=== PATIENT | male | born 1930 | race Caucasian/White ===

== ENCOUNTER 2019-02-07 18:38 | Observation (INO) ==
--- NOTE | 2019-02-07 19:22 | Emergency Department Note ---
ED Disposition Condition on Discharge: Good - Critical Care Critical Care Time: No <Paul Richardson - Last Filed: 02/07/19 19:52> <Scooter Martinez - Last Filed: 02/07/19 22:20> Clinical Impression: Gastroenteritis, Atypical angina, RBBB Disposition: Admitted as Observation Attestation: On 02/07/19, the high probability of a clinically significant, sudden or life threatening deterioration of the following system(s) required my full and direct attention, intervention and personal management. The time I documented below is in addition to time spent performing reported procedures but includes the following listed in this critical care notation. Medical Decision Making - Medical Records Medical records reviewed: Yes: I reviewed the patient's medical records. - [place] Inquiry Pt receiving controlled substance: No - Lab Data Result diagrams: 02/07/19 19:15 02/07/19 19:15 <RichardsonPaul - Last Filed: 02/07/19 19:52> - Lab Data Lab results reviewed: Yes: I reviewed the patient's lab results. Result diagrams: 02/07/19 19:15 02/07/19 19:15 - CT Data CT Scan: Abdomen, Pelvis Time Received: 22:[address] Reviewed: Yes: I have viewed the radiologist's interpretation Preliminary Findings: Abnormal (see report) - Physician Consults Physician Consulted: livier Reason -: Admission <Scooter Martinez - Last Filed: 02/07/19 22:20> Vital Signs: 02/07/19 18:40 02/07/19 18:57 02/07/19 19:21 Temperature 98.0 F Temperature Source Oral Pulse Rate [Right Brachial] 84 87 72 Respiratory Rate 18 15 Blood Pressure [Left Arm] 156/79 H 173/83 H 159/79 H Blood Pressure Mean [Left Arm] 104 113 105 Blood Pressure Source [Left Arm] Automatic Cuff Automatic Cuff Blood Pressure Position [Left Arm] Sitting Sitting 02 Sat by Pulse Oximetry 98 96 100 Oxygen Delivery Method Room Air Room Air Oxygen Flow Rate (LPM) 3 02/07/19 20:45 Temperature Temperature Source Pulse Rate [Right Brachial] 83 Respiratory Rate 18 Blood Pressure [Left Arm] 166/86 H Blood Pressure Mean [Left Arm] 112 Blood Pressure Source [Left Arm] Automatic Cuff Blood Pressure Position [Left Arm] Sitting 02 Sat by Pulse Oximetry 98 Oxygen Delivery Method Room Air Oxygen Flow Rate (LPM) - Lab Data Lab Results 02/07/19 19:15: WBC 3.6 L, RBC 3.64 L, Hgb 11.1 L, Hct 33.6 L, MCV 92.3, MCH 30.4, MCHC 32.9, RDW 13.4, Plt Count 210, MPV 6.9 L, Neut % (Auto) 62.0, Lymph % (Auto) 22.2, [place] % (Auto) 5.5, Eos % (Auto) 9.7, Baso % (Auto) 0.6, Neut # (Auto) 2.2, Lymph # (Auto) 0.8, [place] # (Auto) 0.2, Eos # (Auto) 0.4, Baso # (Auto) 0.0 02/07/19 19:15: Sodium 142, Potassium 4.8, Chloride 103, Carbon Dioxide 32, Anion Gap 11.8, BUN 21 H, Creatinine 1.28, Estimated Creat Clear 36, Estimated GFR 53 L, Est GFR ( Amer) 64, Glucose 113 H, Calcium 9.6, Total Bilirubin 0.5, AST 12 L, ALT 12, Alkaline Phosphatase 101, Troponin I < 0.02, Total Protein 7.6, Albumin 3.5, Globulin 4.1 H, Albumin/Globulin Ratio 0.9 L, Lipase 81 02/07/19 20:40: Lactate 1.2 02/07/19 21:04: Urine Color Yellow, Urine Appearance Clear, Urine pH 7.0, Ur Specific [place] <= 1.005, Urine Protein Negative, Urine Glucose (UA) Negative, Urine Ketones Negative, Urine Blood Negative, Urine Nitrate Negative, Urine Bilirubin Negative, Urine Urobilinogen 1.0, Ur Leukocyte Esterase Negative, Amorphous Sediment Trace Orders (Tests/Meds): ED MEDICATIONS Discontinued Medications Generic Name Dose Route Start Last Admin Trade Name Freq PRN Reason Stop Dose Admin Ioversol 75 ml 02/07/19 20:05 02/07/19 20:06 Rad-Optiray 350 100ml Vial IV 02/07/19 20:06 75 ml ONCE ONE Administration Protocol Pantoprazole Sodium 40 mg 02/07/19 19:18 02/07/19 20:49 Protonix 40mg Vial IV 02/07/19 19:19 40 mg ONCE ONE Administration Sodium Chloride 8 ml 02/07/19 19:18 02/07/19 20:49 Saline Flush 10ml Syringe IV 02/07/19 19:19 8 ml ONCE ONE Administration Sodium Chloride 10 ml 02/07/19 20:05 02/07/19 20:06 Rad-Saline Flush 10ml Syringe IV 02/07/19 20:06 10 ml ONCE ONE Administration ORDERS Category Date Time Status CT abdomen pelvis w con Stat Cat Scan 02/07/19 19:17 Taken Blood Culture Stat Micro 02/07/19 20:55 Received ECG Request by /Nse Stat Y 02/07/19 19:17 Ordered General Adult HPI - General Mode of Arrival: Wheelchair Source of Information: Patient, Spouse Limitations: No Limitations Description of Symptoms (Recalled from ER Triage Doc. by RN): chronic GI issues; has been seen in multiple ER'S, and even scoped at the [facility]; used to see dr owens, so thought he would come here and see if we could give him answers. has had blood tests and ct scans. nothing new symptom-wyman <Paul Richardson - Last Filed: 02/07/19 19:52> <Scooter Martinez - Last Filed: 02/07/19 22:20> - General Chief complaint: Nausea/Vomiting/Diarrhea Stated complaint: Abd pain, nausea Time Seen by Provider: 02/07/19 19:19 - History of Present Illness HPI narrative: mild to mod off and on diffuse abdominal cramps for months, worse today, nonrad, no fever, no NV, no injury, hx multiple abdominal operations (Paul Richardson) - Related Data Home Medications Medication Instructions Recorded Confirmed Albuterol Sulfate [Albuterol 1.25 mg IH QIDP PRN 02/07/19 02/07/19 0.042% 1.25mg/3mL neb] Albuterol Sulfate [Proair Hfa 2 puffs IH Q4HP PRN 02/07/19 02/07/19 90mcg/puff Inh] Aspirin [Aspirin 81mg chewable 81 mg PO DAILY 02/07/19 02/07/19 tab] Atorvastatin Calcium [Atorvastatin 1 tab PO DAILY 02/07/19 02/07/19 80mg Tab] Carvedilol [Carvedilol 3.125mg Tab] 1 tab PO DAILY 02/07/19 02/07/19 Dicyclomine HCl [Bentyl 10mg 1 tab PO DAILY 02/07/19 02/07/19 capsule] Fluticasone/Salmeterol [Advair 1 inhalation IH BID 02/07/19 02/07/19 250/50mcg Diskus] Lisinopril [Lisinopril 20mg Tab] 1 tab PO DAILY 02/07/19 02/07/19 Metoclopramide HCl [Reglan 5mg 1 tab PO DIRECTED 02/07/19 02/07/19 Tablet] Ondansetron [Zofran 4mg ODT] 1 tab PO DIRECTED 02/07/19 02/07/19 Polyethylene Glycol 3350 [Miralax 17 gm PO DAILY 02/07/19 02/07/19 17gm Packet] Promethazine HCl [Phenergan 25mg 1 tab PO DIRECTED 02/07/19 02/07/19 tab] Promethazine HCl [Phenergan 25mg 1 tab PO DIRECTED 02/07/19 02/07/19 tab] Simethicone [Mi-Acid] 80 mg PO DIRECTED 02/07/19 02/07/19 Tamsulosin HCl 0.4 mg PO DAILY 02/07/19 02/07/19 clonazePAM [Clonazepam] 1 tab PO BID 02/07/19 02/07/19 predniSONE [Prednisone 2.5mg 1 tab PO DAILY 02/07/19 02/07/19 Tab] Allergies Allergy/AdvReac Type Severity Reaction Status Date / Time meperidine [From DEMEROL] Allergy Mild NA-HALLUCIN Verified 02/16/18 07:47 ATIONS promethazine [From PHENERGAN] Allergy Mild NA-HALLUCIN Verified 02/16/18 07:47 ATIONS [facility] History - Hepatitis A Screen Drug use history?: No High risk sexual behaviors?: No History of sexually transmitted infection?: No Currently employed?: No Childcare worker?: No Do you have indoor plumbing?: Yes Do you have electricity?: Yes Medical History: Denies:: Internal Pacemaker Other Surgeries: No: Pacemaker - Social History Educational Level: Completed High School Smoking Status: Current every day smoker Tobacco Type: cigarettes Alcohol Intake: never Occupational Status: retired, disabled - Psychiatric History Expresses thoughts of harming self/others: None Suicide Plan Description: No Plan <Paul Richardson - Last Filed: 02/07/19 19:52> I have reviewed the patient's past medical history: Yes <Scooter Martinez - Last Filed: 02/07/19 22:20> - Hepatitis A Screen Attestation statement:: This patient has been screened for Hepatitis A risk factors. ROS Obtained: Yes Systems reviewed as appropriate & no additional complaints - Constitutional Constitutional: Denies fever(s) - Eyes Eyes: Denies change in vision - ENT Ears, Nose, Mouth, and Throat: Denies nasal congestion - Cardiovascular Cardiovascular: Denies chest pain - Respiratory Respiratory: No dyspnea - Gastrointestinal Gastrointestingal: Reports: abdominal pain. Denies: vomiting - Musculoskeletal Musculoskeletal: Denies neck pain - Integumentary/Breasts Skin/Breast: Denies rash - Neurologic Neurologic: Denies dizziness <Paul Richradson - Last Filed: 02/07/19 19:52> Physical Exam - General General appearance: alert, in no apparent distress - Head Head exam: atraumatic - Eye Eye exam: Present: normal appearance - ENT ENT exam: Present: normal exam - Neck Neck exam: Present: normal inspection - Chest Chest inspection: Present: normal inspection - Respiratory Respiratory exam: Present: normal lung sounds bilaterally, other (on home oxygen) - Cardiovascular Cardiovascular exam: Present: regular rate, normal rhythm - Abdominal Exam Abdominal exam: Present: soft, tenderness. Absent: rebound - Extremities Exam Extremities exam: Present: full ROM. Absent: tenderness - Back Exam Back exam: Absent: vertebral tenderness - Neurological Exam Neurological exam: Present: alert, oriented X3 - Psychiatric Psychiatric exam: Present: normal affect, normal mood - Skin Skin exam: Present: warm, dry <Paul Richardson - Last Filed: 02/07/19 19:52>
[2019-02-07 19:28] LABS: Basophils % 0.6 % (0.1-2.0); Eosinophils # 0.4 K/mm3 (0.0-0.4); Eosinophils % 9.7 % (0.1-12.0); Hematocrit 33.6 % (42.0-52.0); Hemoglobin 11.1 g/dL (14.1-18.0); Lymphocytes # 0.8 K/mm3 (0.7-4.5); Lymphocytes % 22.2 % (10-50); Mean Corpuscular HGB Conc 32.9 g/dL (31.8-35.4); Mean Corpuscular Hemoglobin 30.4 pg (27.0-31.2); Mean Corpuscular Volume 92.3 fl (80-94); Mean Platelet Volume 6.9 fl (7.4-10.4); Monocytes # 0.2 K/mm3 (0.1-1.0); Monocytes % 5.5 % (1.7-9.3); Neutrophils # 2.2 K/mm3 (1.8-7.8); Platelet Count 210 K/mm3 (142-424); Red Blood Count 3.64 M/mm3 (4.60-6.20); Red Cell Distribution Width 13.4 % (11.5-17.5); White Blood Count 3.6 K/mm3 (4.8-10.8)
[2019-02-07 19:40] LABS: Alanine Aminotransferase 12 U/L (12-78); Albumin Level 3.5 gm/dL (3.4-5.0); Albumin/Globulin Ratio 0.9 (1.1-1.8); Alkaline Phosphatase 101 U/L (46-116); Anion Gap 11.8 mEq/L (5-15); Aspartate Amino Transferase 12 U/L (15-37); Bilirubin,Total 0.5 mg/dL (0.2-1.0); Blood Urea Nitrogen 21 mg/dL (7-18); Calcium 9.6 mg/dL (8.5-10.1); Carbon Dioxide 32 mmol/L (21.0-32.0); Chloride 103 mmol/L (98-107); Globulin 4.1 gm/dl (1.3-3.2); Glucose 113 mg/dL (74-106); Lipase 81 u/L (73-393); Potassium 4.8 mmoL/L (3.5-5.1); Sodium 142 mmol/L (136-145); Total Protein,Serum 7.6 gm/dL (6.4-8.2)
[2019-02-07 21:10] LABS: Microscopic, Urine URINE MICROSCOPIC (MICROSCOPIC)
[2019-02-07 21:11] LABS: Appearance,Urine CLEAR (Clear); Bilirubin,Urine Negative (Negative); Blood, Urine Negative (Negative); Color,Urine YELLOW (Yellow); Glucose,Urine (UA) Negative (Negative); Ketones,Urine Negative (Negative); Leukocyte Esterase,Urine Negative (Negative); Protein,Urine Negative (Negative); Specific Gravity, Urine <= 1.005 (1.005-1.030)
[2019-02-07 21:12] LABS: Amorphous Sediment,Urine Trace /lpf
[2019-02-08 04:55] LABS: Basophils % 0.6 % (0.1-2.0); Eosinophils # 0.3 K/mm3 (0.0-0.4); Lymphocytes # 0.8 K/mm3 (0.7-4.5); Mean Corpuscular HGB Conc 33.7 g/dL (31.8-35.4); Mean Corpuscular Hemoglobin 30.8 pg (27.0-31.2); Mean Corpuscular Volume 91.5 fl (80-94); Mean Platelet Volume 6.8 fl (7.4-10.4); Monocytes # 0.2 K/mm3 (0.1-1.0); Monocytes % 7.2 % (1.7-9.3); Neutrophils # 1.8 K/mm3 (1.8-7.8); Neutrophils % 56.2 % (37.0-80.0); Platelet Count 199 K/mm3 (142-424); Red Blood Count 3.19 M/mm3 (4.60-6.20); Red Cell Distribution Width 13.4 % (11.5-17.5); White Blood Count 3.2 K/mm3 (4.8-10.8)
[2019-02-08 04:59] LABS: Hematocrit 29.2 % (42.0-52.0); Hemoglobin 9.8 g/dL (14.1-18.0)
[2019-02-08 05:04] LABS: Anion Gap 11.2 mEq/L (5-15); Blood Urea Nitrogen 18 mg/dL (7-18); Calcium 9.2 mg/dL (8.5-10.1); Carbon Dioxide 32 mmol/L (21.0-32.0); Chloride 105 mmol/L (98-107); Chol/HDL Ratio 3.3 (1-3.5); Cholesterol 107 mg/dL (140-200); HDL Cholesterol 32 mg/dL (27-67); LDL Cholesterol 65 mg/dL (0-130); Potassium 4.2 mmoL/L (3.5-5.1); Sodium 144 mmol/L (136-145); Triglycerides 49 mg/dL (30-200); VLDL Cholesterol 10 mg/dL (0-40)
[2019-02-08 05:05] LABS: Glucose 86 mg/dL (74-106)
--- NOTE | 2019-02-08 07:25 | Pharmacy Consult Notes ---
[facility] Pharmacy VTE Monitoring - Patient Demographics Admission date: 02/07/19 Report Date: 02/08/19 Time: 07:25 Allergies/Adverse Reactions: Patient Allergies meperidine [From DEMEROL] Allergy (Mild, Verified 02/16/18 07:47) NA-HALLUCINATIONS promethazine [From PHENERGAN] Allergy (Mild, Verified 02/16/18 07:47) NA-HALLUCINATIONS Height: 1.78 m Weight: 60.555 kg Patient Problems: Current Active Problems Gastroenteritis (Acute) Atypical angina (Acute) RBBB (Acute) - VTE Risk Labs: VTE Related Lab Results Hgb 9.8 g/dL (14.1-18.0) L D 02/08/19 04:35 Hct 29.2 % (42.0-52.0) L 02/08/19 04:35 Plt Count 199 K/mm3 (142-424) 02/08/19 04:35 BUN 18 mg/dL (7-18) 02/08/19 04:35 Creatinine 1.19 mg/dL (0.70-1.30) 02/08/19 04:35 Estimated Creat Clear 37 mL/min (50-200) 02/08/19 04:35 VTE Risk Level: Low Risk - Prophylaxis VTE Prophylaxis Ordered?: Yes Types of VTE Prophylaxis: TEDS Knee High Location of Applied Device: Bilateral Lower Extremeties - VTE Diagnosis Confirmed Treatment or plan recommended: Continue Current Treatment
--- NOTE | 2019-02-08 07:35 | History & Physical Report ---
*Admission Date: 02/07/19 *Chief complaint: Nausea for 3 months *History of present illness: 88-year-old male with COPD, hypertension presented to the emergency department with a 3-month complaint of nausea that will occur intermittently but on a daily basis. Patient describes episodes of intense nausea that he will sometimes also described as painful that will last for 3-4 hours and will occur randomly throughout the day. Sometimes they are associated with activity. Sometimes episodes of nausea will wake him from sleep. Eating does not usually trigger the nausea. Nor does it alleviate the nausea. Occasionally he will have associated shortness of breath with his nausea. He had an EGD approximately 2 weeks ago without significant findings. At that time he was placed on Reglan. His provides some history and states the patient was told he has a lot of gas buildup within his gastrointestinal system. Since starting Reglan patient has not noticed any improvement in nausea. He believes he has lost weight over the last 3 months although his does not share that believe. When he came to the emergency department he underwent workup which revealed coronary artery calcifications on CT scanning of the abdomen. It was believed that this may be possibly an atypical presentation of angina and decision was made to admit for cardiac workup. [facility] History I have reviewed the patient's past medical history: Yes Medical History: Reports:: Cancer (skin), Chronic Obstructive Pulmonary Disease (COPD), Hypertension Denies:: Diabetes Mellitus Type 1, Diabetes Mellitus Type 2, Internal Pacemaker, MRSA *Have you ever received a pneumonia vaccine?: Yes *Have you received a flu vaccine this season?: Yes Other Medical History: Reports: Arthritis, Cataracts Other Surgeries: Yes: Appendectomy, Cancer Surgery, Cardiac Catheterization, Cholecystectomy, Colonoscopy, EGD, Hernia Repair. No: Pacemaker Amputation: No - *Social History Educational Level: Attended Grade School Smoking Status: Current every day smoker Tobacco Type: cigarettes # Packs/Day (cigarettes): 1 Alcohol Intake: never *Occupational Status:: retired, disabled Housing: house Household Members: significant other *Travel in the last 8 weeks: None - Psychiatric History Expresses thoughts of harming self/others: None Suicide Plan Description: No Plan Family Hx:: Unable to obtain Review of Systems - Review of Systems Review of systems:: pertinent systems reviewed and negative unless documented below - Constitutional Denies body ache(s), Denies chills, Denies daytime sleepiness, Denies excessive sweating, Denies fatigue - *Cardiovascular Denies chest pain, Denies chest pain at rest, Denies chest pain with activity, Denies leg pain with activity - *Respiratory Reports cough, Reports shortness of breath (Chronic from COPD) - *Gastrointestinal Reports belching, Denies change in bowel habits, Denies change in stools, Denies coffee ground vomit, Denies heartburn, Denies difficulty swallowing, Denies incontinent of stools, Denies heartburn, Denies vomiting blood, Denies bright, red blood in stools - *Neurologic Denies dizziness Meds Home Medications Medication Instructions Recorded Confirmed Type Albuterol Sulfate [Albuterol 1.25 mg IH QIDP PRN 02/07/19 02/07/19 History 0.042% 1.25mg/3mL neb] Albuterol Sulfate [Proair Hfa 2 puffs IH Q4HP PRN 02/07/19 02/07/19 History 90mcg/puff Inh] Aspirin [Aspirin 81mg chewable 81 mg PO DAILY 02/07/19 02/07/19 History tab] Atorvastatin Calcium [Atorvastatin 80 mg PO DAILY 02/07/19 02/08/19 History 80mg Tab] Carvedilol [Carvedilol 3.125mg Tab] 1 tab PO DAILY 02/07/19 02/07/19 History Clopidogrel Bisulfate [Plavix 75mg 75 mg PO DAILY 02/07/19 02/07/19 History Tab] Fluticasone/Salmeterol [Advair 1 inhalation IH BID 02/07/19 02/07/19 History 250/50mcg Diskus] Lisinopril [Lisinopril 20mg Tab] 1 tab PO DAILY 02/07/19 02/07/19 History Metoclopramide HCl [Reglan 5mg 1 tab PO DIRECTED 02/07/19 02/07/19 History Tablet] Ondansetron [Zofran 4mg ODT] 1 tab PO DIRECTED 02/07/19 02/07/19 History Polyethylene Glycol 3350 [Miralax 17 gm PO DAILY 02/07/19 02/07/19 History 17gm Packet] Promethazine HCl [Phenergan 25mg 1 tab PO DIRECTED 02/07/19 02/07/19 History tab] Simethicone [Mi-Acid] 80 mg PO DIRECTED 02/07/19 02/07/19 History Tamsulosin HCl 0.4 mg PO DAILY 02/07/19 02/07/19 History clonazePAM [Clonazepam] 1 tab PO BID 02/07/19 02/07/19 History predniSONE [Prednisone 2.5mg 1 tab PO DAILY 02/07/19 02/07/19 History Tab] Allergies Allergy/AdvReac Type Severity Reaction Status Date / Time meperidine [From DEMEROL] Allergy Mild NA-HALLUCIN Verified 02/16/18 07:47 ATIONS promethazine [From PHENERGAN] Allergy Mild NA-HALLUCIN Verified 02/16/18 07:47 ATIONS Exam Vital signs and Labs for Last 24 Hours: Temp Pulse Resp BP Pulse Ox 97.7 F 82 18 159/72 H 96 02/08/19 04:00 02/08/19 04:00 02/08/19 04:00 02/08/19 04:00 02/08/19 04:00 Laboratory Results - last 24 hr 02/07/19 19:15: WBC 3.6 L, RBC 3.64 L, Hgb 11.1 L, Hct 33.6 L, MCV 92.3, MCH 30.4, MCHC 32.9, RDW 13.4, Plt Count 210, MPV 6.9 L, Neut % (Auto) 62.0, Lymph % (Auto) 22.2, [place] % (Auto) 5.5, Eos % (Auto) 9.7, Baso % (Auto) 0.6, Neut # (Auto) 2.2, Lymph # (Auto) 0.8, [place] # (Auto) 0.2, Eos # (Auto) 0.4, Baso # (Auto) 0.0 02/07/19 19:15: Sodium 142, Potassium 4.8, Chloride 103, Carbon Dioxide 32, Anion Gap 11.8, BUN 21 H, Creatinine 1.28, Estimated Creat Clear 36, Estimated GFR 53 L, Est GFR ( Amer) 64, Glucose 113 H, Calcium 9.6, Total Bilirubin 0.5, AST 12 L, ALT 12, Alkaline Phosphatase 101, Troponin I < 0.02, Total Protein 7.6, Albumin 3.5, Globulin 4.1 H, Albumin/Globulin Ratio 0.9 L, Lipase 81 02/07/19 20:40: Lactate 1.2 02/07/19 21:04: Urine Color Yellow, Urine Appearance Clear, Urine pH 7.0, Ur Specific [place] <= 1.005, Urine Protein Negative, Urine Glucose (UA) Negative, Urine Ketones Negative, Urine Blood Negative, Urine Nitrate Negative, Urine Bilirubin Negative, Urine Urobilinogen 1.0, Ur Leukocyte Esterase Negative, Amorphous Sediment Trace 02/08/19 01:35: Troponin I < 0.02 02/08/19 04:35: Sodium 144, Potassium 4.2, Chloride 105, Carbon Dioxide 32, Anion Gap 11.2, BUN 18, Creatinine 1.19, Estimated Creat Clear 37, Estimated GFR 58 L, Est GFR ( Amer) 70, Glucose 86 D, Calcium 9.2, Magnesium 1.8, Troponin I < 0.02, Triglycerides 49, Cholesterol 107 L, LDL Cholesterol 65, VLDL Cholesterol 10, HDL Cholesterol 32, Cholesterol/HDL Ratio 3.3 02/08/19 04:35: WBC 3.2 L, RBC 3.19 L, Hgb 9.8 L D, Hct 29.2 L, MCV 91.5, MCH 30.8, MCHC 33.7, RDW 13.4, Plt Count 199, MPV 6.8 L, Neut % (Auto) 56.2, Lymph % (Auto) 26.0, [place] % (Auto) 7.2, Eos % (Auto) 10.0, Baso % (Auto) 0.6, Neut # (Auto) 1.8, Lymph # (Auto) 0.8, [place] # (Auto) 0.2, Eos # (Auto) 0.3, Baso # (Auto) 0.0 I & O for Last 24 hours: Intake & Output 02/05/19 02/06/19 02/07/19 02/08/19 11:59 11:59 11:59 11:59 Intake Total 355 / 355 Output Total 150 / 150 Balance 205 / 205 Weight 133 lb 8 oz Narrative: Patient is awake and alert sitting up on the side of the bed. While he does not appear to be in any distress he looks like he does not feel well. Oropharynx is moist. Neck is without lymphadenopathy. Lungs are distant with occasional expiratory wheeze. Heart has a regular rate and rhythm. Abdomen is thin, soft, nontender, nondistended. Extremities are warm to the touch. Neurologic exam reveals no focal deficits Assessment and Plan (1) Chronic nausea Current visit: Yes Status: Acute Category: Medical Code(s): R11.0 - Nausea (2) Atypical angina Current visit: Yes Status: Acute Category: Medical Code(s): I20.8 - Other forms of angina pectoris (3) Abnormal chest x-ray Current visit: Yes Status: Acute Category: Medical Code(s): R93.89 - Abnormal findings on diagnostic imaging of other specified body structures - Assessment and plan all Dx Assessment and Plan for all problems:: 1. I have discussed case with cardiology and I am going to proceed with stress testing. As patient has abnormal chest x-ray without significant signs of infection I will proceed with chest CT to rule out a mass
--- NOTE | 2019-02-08 08:11 | Consult Report ---
Addendum entered and electronically signed by FRANTZ Mackay 02/08/19 14:45: Cardiac cath showed minor CAD with normal LVEF. The coronary calcification seen on CT is external without internal luminal restriction. Stress test was a false positive. OK for discharge home later today from a cardiology standpoint. Recommend continuing ASA, coreg 6.25 mg BID and lisinopril 20 mg daily. Follow up in 1-2 wks. Addendum entered and electronically signed by FRANTZ Mackay 02/08/19 12:01: Lexiscan myoview shows apical and inferior scar with large area of reversible ischemia. LVEF 54%. Discussed with patient and family. Recommend [facility]. They agree to proceed. Will perform today. Original Note: History of Present Illness Consult date: 02/08/19 Requesting physician: Hao Guerrero Consult reason: chest pain Chief complaint: CP, Abdominal pain, Nausea Additional Medical History:: 1. COPD A. Chronic oxygen use B. Continued tobacco use 2. Hypertension 3. Coronary artery disease with history of previous coronary artery stenting in 2013, per , at [facility] in [place], [place] 4. 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 Nausea A. Recent GI evaluation (EGD) by Dr. Wilson without significant findings other than gas buildup, per 6. Infrarenal abdominal aortic aneurysm at 4.4 x 4.3 cm, abdominal CT, 02/2019 7. History of skin cancer 8. Hyperlipidemia 9. RBBB on EKG, New since 02/2018 History of present illness: 88-year-old male with COPD, hypertension presented to the emergency department with a 3-month complaint of nausea that will occur intermittently but on a daily basis. Patient describes episodes of intense nausea that he will sometimes also described as painful that will last for 3-4 hours and will occur randomly throughout the day. Sometimes they are associated with activity. Sometimes episodes of nausea will wake him from sleep. Eating does not usually trigger the nausea. Nor does it alleviate the nausea. Occasionally he will have associated shortness of breath with his nausea. He had an EGD approximately 2 weeks ago without significant findings. At that time he was placed on Reglan. His provides some history and states the patient was told he has a lot of gas buildup within his gastrointestinal system. Since starting Reglan patient has not noticed any improvement in nausea. He believes he has lost weight over the last 3 months although his does not share that believe. When he came to the emergency department he underwent workup which revealed coronary artery calcifications on CT scanning of the abdomen. It was believed that this may be possibly an atypical presentation of angina and decision was made to admit for cardiac workup The above per Dr. Guerrero Patient and both seem to indicate that the patient's symptoms started in his abdomen with gradual buildup of pressure into the chest. No significant relief with belching, bowel movements or medical therapy have been obtained. They do not believe that he has had any further workup of his history of cardiac problems. His CT of his abdomen on admission did show coronary artery calcification. Chest x-ray on admission shows right upper lobe pneumonia and COPD. [facility] History Medical History: Reports:: Cancer (skin), Chronic Obstructive Pulmonary Disease (COPD), Hypertension Denies:: Diabetes Mellitus Type 1, Diabetes Mellitus Type 2, Internal Pacemaker, MRSA *Have you ever received a pneumonia vaccine?: Yes *Have you received a flu vaccine this season?: Yes Other Medical History: Reports: Arthritis, Cataracts Other Surgeries: Yes: Appendectomy, Cancer Surgery, Cardiac Catheterization, Cholecystectomy, Colonoscopy, EGD, Hernia Repair. No: Pacemaker Amputation: No - *Social History Educational Level: Attended Grade School Smoking Status: Current every day smoker Tobacco Type: cigarettes # Packs/Day (cigarettes): 1 Alcohol Intake: never *Occupational Status:: retired, disabled Housing: house Household Members: significant other *Travel in the last 8 weeks: None - Psychiatric History Expresses thoughts of harming self/others: None Suicide Plan Description: No Plan Family Hx:: Unable to obtain Meds Home Medications Medication Instructions Recorded Confirmed Type Albuterol Sulfate [Albuterol 1.25 mg IH QIDP PRN 02/07/19 02/07/19 History 0.042% 1.25mg/3mL neb] Albuterol Sulfate [Proair Hfa 2 puffs IH Q4HP PRN 02/07/19 02/07/19 History 90mcg/puff Inh] Aspirin [Aspirin 81mg chewable 81 mg PO DAILY 02/07/19 02/07/19 History tab] Atorvastatin Calcium [Atorvastatin 80 mg PO DAILY 02/07/19 02/08/19 History 80mg Tab] Carvedilol [Carvedilol 3.125mg Tab] 1 tab PO DAILY 02/07/19 02/07/19 History Clopidogrel Bisulfate [Plavix 75mg 75 mg PO DAILY 02/07/19 02/07/19 History Tab] Fluticasone/Salmeterol [Advair 1 inhalation IH BID 02/07/19 02/07/19 History 250/50mcg Diskus] Lisinopril [Lisinopril 20mg Tab] 1 tab PO DAILY 02/07/19 02/07/19 History Metoclopramide HCl [Reglan 5mg 1 tab PO DIRECTED 02/07/19 02/07/19 History Tablet] Ondansetron [Zofran 4mg ODT] 1 tab PO DIRECTED 02/07/19 02/07/19 History Polyethylene Glycol 3350 [Miralax 17 gm PO DAILY 02/07/19 02/07/19 History 17gm Packet] Promethazine HCl [Phenergan 25mg 1 tab PO DIRECTED 02/07/19 02/07/19 History tab] Simethicone [Mi-Acid] 80 mg PO DIRECTED 02/07/19 02/07/19 History Tamsulosin HCl 0.4 mg PO DAILY 02/07/19 02/07/19 History clonazePAM [Clonazepam] 1 tab PO BID 02/07/19 02/07/19 History predniSONE [Prednisone 2.5mg 1 tab PO DAILY 02/07/19 02/07/19 History Tab] Allergies Allergy/AdvReac Type Severity Reaction Status Date / Time meperidine [From DEMEROL] Allergy Mild NA-HALLUCIN Verified 02/16/18 07:47 ATIONS promethazine [From PHENERGAN] Allergy Mild NA-HALLUCIN Verified 02/16/18 07:47 ATIONS Review of Systems - *Cardiovascular Reports chest pain - *Respiratory Reports shortness of breath with activity - *Gastrointestinal Reports abdominal pain, Reports bloating, Reports heartburn, Reports nausea, Denies loose stools, Denies loose stools, Denies black, tarry stools - *Genitourinary Denies blood in urine, Denies urinary incontinence - *Musculoskeletal Reports joint pain, Reports back pain - *Neurologic Denies dizziness Exam Vital signs and Labs for Last 24 Hours: Temp Pulse Resp BP Pulse Ox 97.7 F 82 18 159/72 H 96 02/08/19 04:00 02/08/19 04:00 02/08/19 04:00 02/08/19 04:00 02/08/19 04:00 Laboratory Results - last 24 hr 02/07/19 19:15: WBC 3.6 L, RBC 3.64 L, Hgb 11.1 L, Hct 33.6 L, MCV 92.3, MCH 30.4, MCHC 32.9, RDW 13.4, Plt Count 210, MPV 6.9 L, Neut % (Auto) 62.0, Lymph % (Auto) 22.2, [place] % (Auto) 5.5, Eos % (Auto) 9.7, Baso % (Auto) 0.6, Neut # (Auto) 2.2, Lymph # (Auto) 0.8, [place] # (Auto) 0.2, Eos # (Auto) 0.4, Baso # (Auto) 0.0 02/07/19 19:15: Sodium 142, Potassium 4.8, Chloride 103, Carbon Dioxide 32, Anion Gap 11.8, BUN 21 H, Creatinine 1.28, Estimated Creat Clear 36, Estimated GFR 53 L, Est GFR ( Amer) 64, Glucose 113 H, Calcium 9.6, Total Bilirubin 0.5, AST 12 L, ALT 12, Alkaline Phosphatase 101, Troponin I < 0.02, Total Protein 7.6, Albumin 3.5, Globulin 4.1 H, Albumin/Globulin Ratio 0.9 L, Lipase 81 02/07/19 20:40: Lactate 1.2 02/07/19 21:04: Urine Color Yellow, Urine Appearance Clear, Urine pH 7.0, Ur Specific [place] <= 1.005, Urine Protein Negative, Urine Glucose (UA) Negative, Urine Ketones Negative, Urine Blood Negative, Urine Nitrate Negative, Urine Bilirubin Negative, Urine Urobilinogen 1.0, Ur Leukocyte Esterase Negative, Amorphous Sediment Trace 02/08/19 01:35: Troponin I < 0.02 02/08/19 04:35: Sodium 144, Potassium 4.2, Chloride 105, Carbon Dioxide 32, Anion Gap 11.2, BUN 18, Creatinine 1.19, Estimated Creat Clear 37, Estimated GFR 58 L, Est GFR ( Amer) 70, Glucose 86 D, Calcium 9.2, Magnesium 1.8, Troponin I < 0.02, Triglycerides 49, Cholesterol 107 L, LDL Cholesterol 65, VLDL Cholesterol 10, HDL Cholesterol 32, Cholesterol/HDL Ratio 3.3 02/08/19 04:35: WBC 3.2 L, RBC 3.19 L, Hgb 9.8 L D, Hct 29.2 L, MCV 91.5, MCH 30.8, MCHC 33.7, RDW 13.4, Plt Count 199, MPV 6.8 L, Neut % (Auto) 56.2, Lymph % (Auto) 26.0, [place] % (Auto) 7.2, Eos % (Auto) 10.0, Baso % (Auto) 0.6, Neut # (Auto) 1.8, Lymph # (Auto) 0.8, [place] # (Auto) 0.2, Eos # (Auto) 0.3, Baso # (Auto) 0.0 I & O for Last 24 hours: Intake & Output 02/05/19 02/06/19 02/07/19 02/08/19 11:59 11:59 11:59 11:59 Intake Total 355 / 355 Output Total 150 / 150 Balance 205 / 205 Weight 133 lb 8 oz - *Routine HEENT Exam Head: Present: normocephalic Eye: Present: EOMI, PERRL ENT: Present: mucous membranes moist - *Routine Neck Exam Present: supple. Absent: JVD, carotid bruit - *Routine Respiratory Exam Absent: accessory muscle use, rales, rhonchi, wheezes - *Routine Cardiovascular Exam Present: RRR. Absent: murmur, gallop, rubs - *Routine Abdominal Exam Present: soft. Absent: tenderness, distended, guarding - *Routine Extremities Exam Absent: edema, calf tenderness - *Routine Neurological Exam Present: alert, oriented X3, moving all extremities Assessment and Plan (1) Chronic nausea Current visit: Yes Status: Acute Category: Medical Code(s): R11.0 - Nausea (2) Atypical angina Current visit: Yes Status: Acute Category: Medical Code(s): I20.8 - Other forms of angina pectoris (3) Abnormal chest x-ray Current visit: Yes Status: Acute Category: Medical Code(s): R93.89 - Abnormal findings on diagnostic imaging of other specified body structures (4) Hypertension Current visit: Yes Status: Acute Category: Medical Code(s): I10 - Essential (primary) hypertension (5) Hyperlipidemia Current visit: Yes Status: Acute Category: Medical Code(s): E78.5 - Hyperlipidemia, unspecified (6) RBBB Current visit: Yes Status: Acute Category: Medical Code(s): I45.10 - Unspecified right bundle-branch block - Assessment and plan all Dx Assessment and Plan for all problems:: 1. With patient's complaint of chest/abdominal pressure, known coronary artery disease, hypertension, hyperlipidemia and right bundle branch block on EKG, will obtain a Lexiscan Myoview to evaluate his symptoms of possible atypical angina. Patient denies chest pain and symptoms are not correlated with activity. Troponins are normal times 3. 2. Blood pressure has been elevated during admission, Recommend increasing Coreg to 6.25 mg twice daily 3. Further recommendations to follow pending above results.
--- NOTE | 2019-02-08 16:37 | Discharge Summary ---
General - General Admission date:: 02/07/19 Discharge date: 02/08/19 HPI HPI: 88-year-old male with COPD, hypertension presented to the emergency department with a 3-month complaint of nausea that will occur intermittently but on a daily basis. Patient describes episodes of intense nausea that he will sometimes also described as painful that will last for 3-4 hours and will occur randomly throughout the day. Sometimes they are associated with activity. Sometimes episodes of nausea will wake him from sleep. Eating does not usually trigger the nausea. Nor does it alleviate the nausea. Occasionally he will have associated shortness of breath with his nausea. He had an EGD approximately 2 weeks ago without significant findings. At that time he was placed on Reglan. His provides some history and states the patient was told he has a lot of gas buildup within his gastrointestinal system. Since starting Reglan patient has not noticed any improvement in nausea. He believes he has lost weight over the last 3 months although his does not share that believe. When he came to the emergency department he underwent workup which revealed coronary artery calcifications on CT scanning of the abdomen. It was believed that this may be possibly an atypical presentation of angina and decision was made to admit for cardiac workup. Hospital Course Hospital Course: Patient was admitted to investigate the possibility of underlying coronary disease causing his symptoms of nausea. Patient had a Lexiscan stress test which was abnormal. He underwent cardiac catheterization later in the day on February 08 which revealed no obstructive coronary disease. Patient also underwent CT scan due to abnormal appearance on chest x-ray of the right upper lobe interpreted as a pneumonia. His chest CT showed a spiculated right upper lobe mass as well as to other lesions in the right upper lobe. Patient's nausea persisted. As his cardiac workup was negative he wished to be discharged home. Patient will be discharged home and we will arrange follow-up for his lung mass as an outpatient. Objective Vital signs: Temp Pulse Resp BP Pulse Ox 98.0 F 61 22 131/63 96 02/08/19 15:15 02/08/19 16:15 02/08/19 16:15 02/08/19 16:15 02/08/19 16:15 Results Labs on day of discharge: Labs from last 24 hours 02/08/19 02/08/19 02/08/19 04:35 04:35 01:35 WBC 3.2 L RBC 3.19 L Hgb 9.8 L D Hct 29.2 L MCV 91.5 MCH 30.8 MCHC 33.7 RDW 13.4 Plt Count 199 MPV 6.8 L Neut % (Auto) 56.2 Lymph % (Auto) 26.0 [place] % (Auto) 7.2 Eos % (Auto) 10.0 Baso % (Auto) 0.6 Neut # (Auto) 1.8 Lymph # (Auto) 0.8 Green # (Auto) 0.2 Eos # (Auto) 0.3 Baso # (Auto) 0.0 Sodium 144 Potassium 4.2 Chloride 105 Carbon Dioxide 32 Anion Gap 11.2 BUN 18 Creatinine 1.19 Estimated Creat Clear 37 Estimated GFR 58 L Est GFR ( Amer) 70 Glucose 86 D Lactate Calcium 9.2 Magnesium 1.8 Total Bilirubin AST ALT Alkaline Phosphatase Troponin I < 0.02 < 0.02 Total Protein Albumin Globulin Albumin/Globulin Ratio Triglycerides 49 Cholesterol 107 L LDL Cholesterol 65 VLDL Cholesterol 10 HDL Cholesterol 32 Cholesterol/HDL Ratio 3.3 Lipase Urine Color Urine Appearance Urine pH Ur Specific [place] Urine Protein Urine Glucose (UA) Urine Ketones Urine Blood Urine Nitrate Urine Bilirubin Urine Urobilinogen Ur Leukocyte Esterase Amorphous Sediment 02/07/19 02/07/19 02/07/19 21:04 20:40 19:15 WBC RBC Hgb Hct MCV MCH MCHC RDW Plt Count MPV Neut % (Auto) Lymph % (Auto) Green % (Auto) Eos % (Auto) Baso % (Auto) Neut # (Auto) Lymph # (Auto) Green # (Auto) Eos # (Auto) Baso # (Auto) Sodium 142 Potassium 4.8 Chloride 103 Carbon Dioxide 32 Anion Gap 11.8 BUN 21 H Creatinine 1.28 Estimated Creat Clear 36 Estimated GFR 53 L Est GFR ( Amer) 64 Glucose 113 H Lactate 1.2 Calcium 9.6 Magnesium Total Bilirubin 0.5 AST 12 L ALT 12 Alkaline Phosphatase 101 Troponin I < 0.02 Total Protein 7.6 Albumin 3.5 Globulin 4.1 H Albumin/Globulin Ratio 0.9 L Triglycerides Cholesterol LDL Cholesterol VLDL Cholesterol HDL Cholesterol Cholesterol/HDL Ratio Lipase 81 Urine Color Yellow Urine Appearance Clear Urine pH 7.0 Ur Specific [place] <= 1.005 Urine Protein Negative Urine Glucose (UA) Negative Urine Ketones Negative Urine Blood Negative Urine Nitrate Negative Urine Bilirubin Negative Urine Urobilinogen 1.0 Ur Leukocyte Esterase Negative Amorphous Sediment Trace 02/07/19 19:15 WBC 3.6 L RBC 3.64 L Hgb 11.1 L Hct 33.6 L MCV 92.3 MCH 30.4 MCHC 32.9 RDW 13.4 Plt Count 210 MPV 6.9 L Neut % (Auto) 62.0 Lymph % (Auto) 22.2 [place] % (Auto) 5.5 Eos % (Auto) 9.7 Baso % (Auto) 0.6 Neut # (Auto) 2.2 Lymph # (Auto) 0.8 Green # (Auto) 0.2 Eos # (Auto) 0.4 Baso # (Auto) 0.0 Sodium Potassium Chloride Carbon Dioxide Anion Gap BUN Creatinine Estimated Creat Clear Estimated GFR Est GFR ( Amer) Glucose Lactate Calcium Magnesium Total Bilirubin AST ALT Alkaline Phosphatase Troponin I Total Protein Albumin Globulin Albumin/Globulin Ratio Triglycerides Cholesterol LDL Cholesterol VLDL Cholesterol HDL Cholesterol Cholesterol/HDL Ratio Lipase Urine Color Urine Appearance Urine pH Ur Specific [place] Urine Protein Urine Glucose (UA) Urine Ketones Urine Blood Urine Nitrate Urine Bilirubin Urine Urobilinogen Ur Leukocyte Esterase Amorphous Sediment DS: Diagnosis - Discharge Diagnosis (1) Chronic nausea Status: Acute (2) Atypical angina Status: Acute (3) Abnormal chest x-ray Status: Acute (4) Hypertension Status: Acute (5) Hyperlipidemia Status: Acute (6) RBBB Status: Acute (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 Status: Acute Discharge Plan - Patient Discharge Instructions ACTIVITY: Continue current activity DIET: continue same diet Patient Instructions: DI for Angina, DI for Diarrhea and Traveler's Diarrhea -- Adult - Follow up Plan Disposition: Home, Self-Fpc Medications: Home Medications Medication Instructions Recorded Confirmed Type Albuterol Sulfate [Proair Hfa 2 puffs IH Q4HP PRN 02/07/19 02/07/19 History 90mcg/puff Inh] Aspirin [Aspirin 81mg chewable 81 mg PO DIRECTED 02/07/19 02/08/19 History tab] Atorvastatin Calcium [Atorvastatin 80 mg PO DAILY 02/07/19 02/08/19 History 80mg Tab] Carvedilol [Carvedilol 3.125mg Tab] 3.125 mg PO BID 02/07/19 02/08/19 History Clopidogrel Bisulfate [Plavix 75mg 75 mg PO DAILY 02/07/19 02/07/19 History Tab] Fluticasone/Salmeterol [Advair 1 puff IH BID 02/07/19 02/08/19 History 250/50mcg Diskus] Lisinopril [Lisinopril 20mg Tab] 20 mg PO BID 02/07/19 02/08/19 History Metoclopramide HCl [Reglan 5mg 5 mg PO ACHS 02/07/19 02/08/19 History Tablet] Polyethylene Glycol 3350 [Miralax 17 gm PO DAILY 02/07/19 02/07/19 History 17gm Packet] Tamsulosin HCl 0.4 mg PO DAILY 02/07/19 02/07/19 History clonazePAM [Clonazepam] 0.5 mg PO BIDP PRN 02/07/19 02/08/19 History Ipratropium/Albuterol Sulfate 3 ml IH DIRECTED PRN 02/08/19 02/08/19 History [Duoneb 3mL neb] Simethicone [Gas-X] 125 mg PO DIRECTED PRN 02/08/19 02/08/19 History predniSONE [Prednisone 5mg 5 mg PO DAILY 02/08/19 02/08/19 History Tab] Prescriptions/Medication Reconciliation: Continue Albuterol Sulfate [Proair Hfa 90mcg/puff Inh] 2 puffs IH Q4HP PRN PRN Reason: Shortness Of Breath Or Wheezing Aspirin [Aspirin 81mg chewable tab] 81 mg PO DIRECTED Tamsulosin HCl 0.4 mg PO DAILY Polyethylene Glycol 3350 [Miralax 17gm Packet] 17 gm PO DAILY Metoclopramide HCl [Reglan 5mg Tablet] 5 mg PO ACHS Lisinopril [Lisinopril 20mg Tab] 20 mg PO BID clonazePAM [Clonazepam] 0.5 mg PO BIDP PRN PRN Reason: Nausea Atorvastatin Calcium [Atorvastatin 80mg Tab] 80 mg PO DAILY Clopidogrel Bisulfate [Plavix 75mg Tab] 75 mg PO DAILY Ipratropium/Albuterol Sulfate [Duoneb 3mL neb] 3 ml IH DIRECTED PRN PRN Reason: Shortness Of Breath Or Wheezing Simethicone [Gas-X] 125 mg PO DIRECTED PRN PRN Reason: Gas Pain And Discomfort predniSONE [Prednisone 5mg Tab] 5 mg PO DAILY Fluticasone/Salmeterol [Advair 250/50mcg Diskus] 1 puff IH BID Carvedilol [Carvedilol 3.125mg Tab] 3.125 mg PO BID
--- NOTE | 2019-02-08 18:51 | Cardiology Report ---
PROCEDURE: 2-D M-mode and color Doppler study INDICATIONS FOR THE TEST: Chest pain COPD+ Heart Murmur+ Tobacco Smoking+ Palpitations Fatigue Syncope Edema Hypertension+Diabetes Mellitus Rheumatic Fever SOB+BARAJAS Obesity Hyperlipidemia Family History HD Additional History HOME O2, STENT PATIENT INFORMATION HEIGHT: 70 WEIGHT:139 GENDER: Male B/P:156/79 2-D/M-MODE INTERPRETATION: 2-D MEASUREMENTS OBSERVED VALUES IN CMS Right Ventricular Dimension (RVDd) 2.5 Interventricular Septum (Thickness)(IVsd) 1.2 Left Ventricular Internal Dimensions(LVIDd) 5.1 Left Ventricular Posterior Wall (Thickness)(LVPWd) 1.1 Aortic Root 3.0 Aortic Cusp Separation 1.4 Left Atrial Dimensions (LAD) 3.3 2D 1. Left atrium is mildly enlarged, left ventricle is normal size, mild concentric left ventricular hypertrophy, visually estimated ejection fraction 55% with no regional wall motion abnormality. 2. The right atrium and the ventricular normal size and contractility. 3. The aortic valve is thickened and calcified leaflet continue to display good mobility. 4. The mitral and tricuspid valve leaflets are minimally thickened. 5. The pulmonic valve is poorly visualized. 6. Pericardial effusion noted. DOPPLER INTERROGATION: Doppler interrogation of the aortic, mitral and tricuspid valvular presence of mild aortic, mild mitral and tricuspid regurgitation, tricuspid regurgitation jet velocity is inadequate for calculation of the right ventricular systolic pressure, grade 1 diastolic dysfunction seen with tissue Doppler evidence of raised left atrial pressure. CONCLUSION: 1. Mildly enlarged left atrium, normal left ventricular size, mild concentric left ventricular hypertrophy, visually estimated ejection fraction 55% with no regional wall motion abnormality, grade 1 diastolic dysfunction seen with tissue Doppler evidence of raised left atrial pressure. 2. Mild aortic, mild mitral and tricuspid regurgitation 3. No significant pericardial effusion noted.
== END 2019-02-08 21:12 | disposition home or self-care (01) ==
LOC: ER 18:38 → 2ND 18:38
PROVIDERS: ADMIT Family Medicine; ATTEND Family Medicine
CPT/HCPCS: 36415; 71020; 71046; 71250; 74177; 78452; 80048; 80053; 80061; 81001; 83605; 83690; 83735; 84484; 85025; 87040; 93005; 93017; 93306; 93458; 94761; 96374; 99152; 99285; A9502; C1725; C1769; G0378; J1644; J2785; Q9967

== ENCOUNTER 2019-04-24 14:57 | Observation (INO) ==
--- NOTE | 2019-04-24 16:12 | Emergency Department Note ---
ED Disposition Clinical Impression: Anemia, Renal insufficiency Disposition: Still a Patient Condition on Discharge: Fair Instructions: DI for Acute Abdomen Referrals: Garret Goyal MD [Primary Care Provider] - - Critical Care Critical Care Time: No Attestation: On 04/24/19, the high probability of a clinically significant, sudden or life threatening deterioration of the following system(s) required my full and direct attention, intervention and personal management. The time I documented below is in addition to time spent performing reported procedures but includes the fo llowing listed in this critical care notation. Medical Decision Making - Medical Records Medical records reviewed: Yes: I reviewed the patient's medical records. - Eugene Inquiry Pt receiving controlled substance: No Eugene was queried for this patient: No Vital Signs: 04/24/19 15:19 04/24/19 15:25 04/24/19 16:39 Temperature 98.1 F 98.1 F Temperature Source Oral Oral Pulse Rate [Left Radial] 94 H 93 H 86 Respiratory Rate 20 Blood Pressure [Right Arm] 121/57 L 119/77 119/48 L Blood Pressure Mean [Right Arm] 78 91 71 Blood Pressure Source [Right Arm] Automatic Cuff Automatic Cuff Automatic Cuff Blood Pressure Position [Right Arm] Sitting Sitting Sitting 02 Sat by Pulse Oximetry 89 L 99 99 Oxygen Delivery Method Room Air Nasal Cannula Room Air Nasal Cannula Oxygen Flow Rate (LPM) 2 2 04/24/19 17:15 04/24/19 17:49 Temperature Temperature Source Pulse Rate [Left Radial] 83 87 Respiratory Rate Blood Pressure [Right Arm] 125/60 125/58 L Blood Pressure Mean [Right Arm] 81 80 Blood Pressure Source [Right Arm] Automatic Cuff Automatic Cuff Blood Pressure Position [Right Arm] Supine Sitting 02 Sat by Pulse Oximetry 98 99 Oxygen Delivery Method Room Air Oxygen Flow Rate (LPM) - Lab Data Lab Results 04/24/19 15:55: Stool Occult Blood Positive A 04/24/19 16:20: WBC 4.6 L, RBC 2.33 L, Hgb 6.7 L*, Hct 21.7 L*, MCV 93.4, MCH 28.7, MCHC 30.7 L, RDW 14.3, Plt Count 177, MPV 7.1 L, Neut % (Auto) 79.3, Lymph % (Auto) 11.9, [place] % (Auto) 7.7, Eos % (Auto) 0.7, Baso % (Auto) 0.3, Neut # (Auto) 3.6, Lymph # (Auto) 0.5 L, [place] # (Auto) 0.4, Eos # (Auto) 0.0, Baso # (Auto) 0.0 04/24/19 16:20: Sodium 141, Potassium 4.5, Chloride 104, Carbon Dioxide 29, Anion Gap 12.5, BUN 50 H, Creatinine 1.45 H, Estimated Creat Clear 31, Estimated GFR 46 L, Est GFR ( Amer) 56 L, Glucose 125 H, Calcium 8.9, Total Bilirubin 0.4, AST 28, ALT 19, Alkaline Phosphatase 95, Total Protein 5.9 L, Albumin 2.7 L, Globulin 3.2, Albumin/Globulin Ratio 0.8 L 04/24/19 16:20: Lipase 76 04/24/19 17:50: Blood Type O Positive, Antibody Screen Negative, Crossmatch ([facility]) See Detail Result diagrams: 04/24/19 16:20 04/24/19 16:20 Orders (Tests/Meds): ED MEDICATIONS Generic Name Dose Route Start Last Admin Trade Name Freq PRN Reason Stop Dose Admin Famotidine 20 mg 04/24/19 21:00 Pepcid 20mg/2ml Vial IV 05/24/19 20:59 BID LATANYA Sodium Chloride 250 mls @ 25 mls/hr 04/24/19 19:00 Sod Chlor 0.9% 250ml Bag IV 04/25/19 18:59 .Q10H LATANYA Discontinued Medications Generic Name Dose Route Start Last Admin Trade Name Freq PRN Reason Stop Dose Admin Diatrizoate Meglum/Diatrizoate Sod 30 ml 04/24/19 15:59 04/24/19 16:39 Gastrografin 66%-10% 30ml PO 04/24/19 16:00 30 ml ONCE ONE Administration Ioversol 75 ml 04/24/19 18:59 04/24/19 19:01 Rad-Optiray 350 100ml Vial IV 04/24/19 19:00 75 ml ONCE ONE Administration Protocol Ondansetron HCl 4 mg 04/24/19 16:34 04/24/19 16:39 Zofran 4mg/2ml Vial IV 04/24/19 16:35 4 mg ONCE ONE Administration Pantoprazole Sodium 40 mg 04/24/19 18:54 Protonix 40mg Vial IV 04/24/19 18:55 ONCE ONE Sodium Chloride 8 ml 04/24/19 18:54 Saline Flush 10ml Syringe IV 04/24/19 18:55 ONCE ONE Sodium Chloride 8 ml 04/24/19 18:54 Saline Flush 10ml Syringe IV 04/24/19 18:55 ONCE ONE Sodium Chloride 10 ml 04/24/19 18:59 04/24/19 19:00 Rad-Saline Flush 10ml Syringe IV 04/24/19 19:00 10 ml ONCE ONE Administration ORDERS Category Date Time Status Blood transfusion [Red Blood Cells] Stat BBK 04/24/19 17:50 Results Type and Screen Stat BBK 04/24/19 17:[address] abdomen pelvis w con Stat Cat Scan 04/24/19 15:59 Taken Medical Decision Narrative: Mr. Holguin remained hemodynamically stable. His occult stool was positive his hemoglobin was 6.[address] scan was pending due totechnical difficulties.. I spoke with Dr. Potts who accepted the patient for blood transfusion blood pressure monitoring and repeat labs. Follow-up on the CT results. Abdominal Pain HPI - General Chief Complaint: Abdominal Pain Stated Complaint: stomach and bowel pain Time Seen by Provider: 04/24/19 15:30 Mode of Arrival: Ambulatory Source of Information: Patient, Spouse Limitations: No Limitations Description of Symptoms (Recalled from ER Triage Doc. by RN): to ed per pvt car with c/o constipation, abd pain, nausea x 5 days pt states tried a fleets enema today with no relief. - History of Present Illness HPI narrative: 88 years old white male who presented to the ED with 5 days history of upper abdominal pain and no bowel movements. Describes his pain as dull rated 8/10 in the epigastric region, the pain is so severe it makes him sick, so he becomes nauseous but no vomiting. He denies having fever chills, he denies having chest pain shortness of breath or palpitations. He denies having diarrhea. He complains of no bowel movement for 5 days. MD complaint: abdominal pain Onset (ago): day(s) Consistency: constant Location: epigastric Severity scale (1-10): 8 Quality: dull Radiation: none Migration to: no migration Relieving factors: nothing Exacerbating factors: other (No bowel movement. ) - Related Data Home Medications Medication Instructions Recorded Confirmed Albuterol Sulfate [Proair Hfa 2 puffs IH Q4HP PRN 02/07/19 04/24/19 90mcg/puff Inh] Aspirin [Aspirin 81mg chewable 81 mg PO DIRECTED 02/07/19 04/24/19 tab] Atorvastatin Calcium [Atorvastatin 80 mg PO DAILY 02/07/19 04/24/19 80mg Tab] Carvedilol [Carvedilol 3.125mg Tab] 3.125 mg PO BID 02/07/19 04/24/19 Clopidogrel Bisulfate [Plavix 75mg 75 mg PO DAILY 02/07/19 04/24/19 Tab] Fluticasone/Salmeterol [Advair 1 puff IH BID 02/07/19 04/24/19 250/50mcg Diskus] Lisinopril [Lisinopril 20mg Tab] 20 mg PO BID 02/07/19 04/24/19 Metoclopramide HCl [Reglan 5mg 5 mg PO ACHS 02/07/19 04/24/19 Tablet] Polyethylene Glycol 3350 [Miralax 17 gm PO DAILY 02/07/19 04/24/19 17gm Packet] Tamsulosin HCl 0.4 mg PO DAILY 02/07/19 04/24/19 clonazePAM [Clonazepam] 0.5 mg PO BIDP PRN 02/07/19 04/24/19 Ipratropium/Albuterol Sulfate 3 ml IH DIRECTED PRN 02/08/19 04/24/19 [Duoneb 3mL neb] Simethicone [Gas-X] 125 mg PO DIRECTED PRN 02/08/19 04/24/19 predniSONE [Prednisone 5mg 5 mg PO DAILY 02/08/19 04/24/19 Tab] Allergies Allergy/AdvReac Type Severity Reaction Status Date / Time meperidine [From DEMEROL] Allergy Mild NA-HALLUCIN Verified 02/16/18 07:47 ATIONS promethazine [From PHENERGAN] Allergy Mild NA-HALLUCIN Verified 02/16/18 07:47 ATIONS [facility] History - Hepatitis A Screen Drug use history?: No High risk sexual behaviors?: No History of sexually transmitted infection?: No Currently employed?: No Childcare worker?: No Do you have indoor plumbing?: Yes Do you have electricity?: Yes Attestation statement:: This patient has been screened for Hepatitis A risk factors. I have reviewed the patient's past medical history: Yes Medical History: Reports:: Cancer (skin), Chronic Obstructive Pulmonary Disease (COPD), Hypertension Denies:: Diabetes Mellitus Type 1, Diabetes Mellitus Type 2, Internal Pacemaker, MRSA Other Medical History: Reports: Arthritis, Cataracts Other Surgeries: Yes: Appendectomy, Cancer Surgery, Cardiac Catheterization, Cholecystectomy, Colonoscopy, EGD, Hernia Repair. No: Pacemaker Amputation: No - Social History Smoking Status: Current every day smoker Tobacco Type: cigarettes # Packs/Day (cigarettes): 1 Alcohol Intake: never Occupational Status: retired, disabled Housing: house Household Members: significant other - Psychiatric History Expresses thoughts of harming self/others: None Suicide Plan Description: No Plan Family Hx:: Unable to obtain ROS Obtained: Yes All systems reviewed & no additional complaints Physical Exam - General General appearance: alert, in no apparent distress - Head Head exam: atraumatic, normocephalic, normal inspection - Eye Eye exam: Present: normal appearance, PERRL, EOMI - ENT ENT exam: Present: normal exam, normal oropharynx, mucous membranes moist, TM's normal bilaterally, normal external ear exam - Neck Neck exam: Present: normal inspection, full ROM, trachea midline. Absent: men ingismus, lymphadenopathy - Chest Chest inspection: Present: normal inspection, symmetric chest wall rise. Absent: tenderness - Respiratory Respiratory exam: Present: normal lung sounds bilaterally. Absent: respiratory distress - Cardiovascular Cardiovascular exam: Present: regular rate, normal rhythm. Absent: JVD - Abdominal Exam Abdominal exam: Present: soft, normal bowel sounds, other (Flat abdomen normal bowel sounds no focal tenderness no cross or rebound tenderness, scars of prior surgery. ). Absent: distention, tenderness, guarding, Abrams's sign, tenderness at McBurney's Point - Rectal Exam Rectal exam: Present: normal rectal tone, other (Good rectal tone small prostate empty vault. ) - Extremities Exam Extremities exam: Present: normal inspection, full ROM, normal capillary refill. Absent: calf tenderness - Back Exam Back exam: Present: normal inspection. Absent: tenderness, CVA tenderness (R), CVA tenderness (L) - Neurological Exam Neurological exam: Present: alert, oriented X3, CN II-XII intact, motor sensory deficit, reflexes normal - Psychiatric Psychiatric exam: Present: normal affect, normal mood - Skin Skin exam: Present: warm, dry, intact, normal color - Lymphatic Lymphatic Findings: no adenopathy
[2019-04-24 16:54] LABS: Basophils % 0.3 % (0.1-2.0); Eosinophils % 0.7 % (0.1-12.0); Lymphocytes # 0.5 K/mm3 (0.7-4.5); Lymphocytes % 11.9 % (10-50); Mean Corpuscular HGB Conc 30.7 g/dL (31.8-35.4); Mean Corpuscular Volume 93.4 fl (80-94); Mean Platelet Volume 7.1 fl (7.4-10.4); Monocytes # 0.4 K/mm3 (0.1-1.0); Monocytes % 7.7 % (1.7-9.3); Neutrophils # 3.6 K/mm3 (1.8-7.8); Neutrophils % 79.3 % (37.0-80.0); Platelet Count 177 K/mm3 (142-424); Red Blood Count 2.33 M/mm3 (4.60-6.20); Red Cell Distribution Width 14.3 % (11.5-17.5); White Blood Count 4.6 K/mm3 (4.8-10.8)
[2019-04-24 17:01] LABS: Hematocrit 21.7 % (42.0-52.0); Hemoglobin 6.7 g/dL (14.1-18.0)
[2019-04-24 17:09] LABS: Albumin Level 2.7 gm/dL (3.4-5.0); Albumin/Globulin Ratio 0.8 (1.1-1.8); Anion Gap 12.5 mEq/L (5-15); Bilirubin,Total 0.4 mg/dL (0.2-1.0); Calcium 8.9 mg/dL (8.5-10.1); Globulin 3.2 gm/dl (1.3-3.2); Total Protein,Serum 5.9 gm/dL (6.4-8.2)
[2019-04-25 01:22] LABS: Hematocrit 21.9 % (42.0-52.0)
[2019-04-25 05:41] LABS: Basophils % 0.2 % (0.1-2.0); Eosinophils % 0.9 % (0.1-12.0); Lymphocytes # 0.6 K/mm3 (0.7-4.5); Lymphocytes % 14.2 % (10-50); Mean Corpuscular HGB Conc 30.8 g/dL (31.8-35.4); Mean Corpuscular Volume 90.5 fl (80-94); Mean Platelet Volume 7.5 fl (7.4-10.4); Monocytes # 0.4 K/mm3 (0.1-1.0); Monocytes % 8.5 % (1.7-9.3); Neutrophils # 3.2 K/mm3 (1.8-7.8); Neutrophils % 76.2 % (37.0-80.0); Platelet Count 185 K/mm3 (142-424); Red Blood Count 2.52 M/mm3 (4.60-6.20); Red Cell Distribution Width 15.4 % (11.5-17.5); White Blood Count 4.2 K/mm3 (4.8-10.8)
[2019-04-25 05:54] LABS: Anion Gap 11.4 mEq/L (5-15); Calcium 8.8 mg/dL (8.5-10.1); Hematocrit 22.8 % (42.0-52.0)
--- NOTE | 2019-04-25 08:49 | H&P/Discharge Summary ---
General - General Admission date:: 04/24/19 Discharge date: 04/25/19 *Admission Date: 04/24/19 *Chief complaint: Constipation *History of present illness: 88-year-old white male with recent admission in February for nausea with negative cardiac work-up who reported to the emergency department because he had not had a bowel movement for 5 days. He reports no nausea or vomiting, simply abdominal distention and discomfort. In the emergency department work-up included rectal exam with no stool in the vault but the physician reported that the rectal sample showed occult blood positivity, and significantly showed a new onset anemia with hemoglobin of 6.4 g. This is markedly worse than February's hemoglobin in the 11 range. Patient and his , who are very observant and conscious about their health, denied melena, hematochezia, coffee-ground emesis or any other emesis for that matter, and deny other signs or symptoms of bleeding. Interestingly he denies orthostasis, chest pain or shortness of air, simply is concerned about his constipation. The ER physician typed and crossed 4 units of packed cells and patient was admitted. [facility] History I have reviewed the patient's past medical history: Yes Medical History: Reports:: Cancer (skin), Chronic Obstructive Pulmonary Disease (COPD), Coronary Artery Disease, Hyperlipidemia, Hypertension, Myocardial Infarction Denies:: Diabetes Mellitus Type 1, Diabetes Mellitus Type 2, Internal Pacemaker, MRSA *Have you ever received a pneumonia vaccine?: No *Have you received a flu vaccine this season?: No Other Medical History: Reports: Arthritis, Cataracts Laterality Cases: Bilateral: Cataract Other Surgeries: Yes: Appendectomy, Cancer Surgery, Cardiac Catheterization, Cholecystectomy, Colonoscopy, Coronary Stent, EGD, Hernia Repair ([place] AREA). No: Pacemaker Amputation: No - *Social History Educational Level: Attended Grade School Smoking Status: Current every day smoker Tobacco Type: cigarettes # Packs/Day (cigarettes): 1 Alcohol Intake: never *Occupational Status:: retired, disabled Housing: house Household Members: significant other *Travel in the last 8 weeks: None - Psychiatric History Expresses thoughts of harming self/others: None Suicide Plan Description: No Plan Family Hx:: Unable to obtain, No significant family history Review of Systems - Review of Systems Review of systems:: pertinent systems reviewed and negative unless documented below - Constitutional Reports anorexia, Denies body ache(s), Denies chills - Eyes Denies blind spots, Denies blurry vision, Denies change in vision - ENT Denies abnormal hearing - *Cardiovascular Denies chest pain, Denies excessive sweating, Denies shortness of breath - *Respiratory Denies change in phlegm color, Denies shortness of breath with activity - *Gastrointestinal Reports abdominal pain, Reports belching - *Genitourinary Denies difficulty urinating Exam Vital signs and Labs for Last 24 Hours: Temp Pulse Resp BP Pulse Ox 98.0 F 68 18 114/59 L 96 04/25/19 07:55 04/25/19 07:55 04/25/19 07:55 04/25/19 07:55 04/25/19 07:55 Laboratory Results - last 24 hr 04/24/19 15:55: Stool Occult Blood Positive A 04/24/19 16:20: WBC 4.6 L, RBC 2.33 L, Hgb 6.7 L*, Hct 21.7 L*, MCV 93.4, MCH 28.7, MCHC 30.7 L, RDW 14.3, Plt Count 177, MPV 7.1 L, Neut % (Auto) 79.3, Lymph % (Auto) 11.9, [place] % (Auto) 7.7, Eos % (Auto) 0.7, Baso % (Auto) 0.3, Neut # (Auto) 3.6, Lymph # (Auto) 0.5 L, [place]bert # (Auto) 0.4, Eos # (Auto) 0.0, Baso # (Auto) 0.0 04/24/19 16:20: Sodium 141, Potassium 4.5, Chloride 104, Carbon Dioxide 29, Anion Gap 12.5, BUN 50 H, Creatinine 1.45 H, Estimated Creat Clear 31, Estimated GFR 46 L, Est GFR ( Amer) 56 L, Glucose 125 H, Calcium 8.9, Total Bilirubin 0.4, AST 28, ALT 19, Alkaline Phosphatase 95, Total Protein 5.9 L, Albumin 2.7 L, Globulin 3.2, Albumin/Globulin Ratio 0.8 L 04/24/19 16:20: Lipase 76 04/24/19 17:50: Blood Type O Positive, Antibody Screen Negative, Crossmatch ([facility]) See Detail 04/24/19 17:55: Blood Type Confirm O Positive 04/25/19 01:10: Hgb 7.0 L*, Hct 21.9 L* 04/25/19 05:20: WBC 4.2 L, RBC 2.52 L, Hgb 7.0 L*, Hct 22.8 L*, MCV 90.5, MCH 27.8, MCHC 30.8 L, RDW 15.4, Plt Count 185, MPV 7.5, Neut % (Auto) 76.2, Lymph % (Auto) 14.2, [place] % (Auto) 8.5, Eos % (Auto) 0.9, Baso % (Auto) 0.2, Neut # (Auto) 3.2, Lymph # (Auto) 0.6 L, [place]bert # (Auto) 0.4, Eos # (Auto) 0.0, Baso # (Auto) 0.0 04/25/19 05:20: Sodium 141, Potassium 4.4, Chloride 105, Carbon Dioxide 29, Anion Gap 11.4, BUN 47 H, Creatinine 1.39 H, Estimated Creat Clear 29, Estimated GFR 48 L, Est GFR ( Amer) 58 L, Glucose 111 H, Calcium 8.8 I & O for Last 24 hours: Intake & Output 04/22/19 04/23/19 04/24/19 04/25/19 11:59 11:59 11:59 11:59 Intake Total 1187 / 1187 Balance 1187 / 1187 Weight 122 lb 8 oz Narrative: This morning patient is sitting up on the side of the bed. Wearing his normal home oxygen. Lungs have good air movement, heart rate regular. Abdomen is soft. Patient is awake and alert. Patient has no edema. 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 Has no neurologic deficits. Alert, oriented x3. Hospital Course Hospital Course: Patient was admitted. I authorized 1 unit of packed cells given his age and possible propensity for fluid overload. Hemoglobin meagan to just above 7 g this morning. Through the night patient had 2 large bowel movements according to his report, unfortunately these are not documented and no occult blood testing was noted by the nursing staff. However patient and his both note the presence of these 2 bowel movements through the night and patient feels much better and requests to go home this morning. I think that is reasonable, although since we have blood available and patient's hemoglobin is still very low I am going to recommend 1 more unit of packed cells this morning and then he can be discharged. Obviously this new onset anemia needs to be worked up, and I have encouraged him to call his primary physician, Dr. Goyal tomorrow for an appointment to evaluate his history and whether or not endoscopy would be indicated in his situation. Given his lack of symptoms of anemia, chest pain, dizziness, this seems to have been a fairly chronic anemia although the hemoglobin of 11 in February certainly mitigates against this. Results Labs on day of discharge: Labs from last 24 hours 04/25/19 04/25/19 04/25/19 05:20 05:20 01:10 WBC 4.2 L RBC 2.52 L Hgb 7.0 L* 7.0 L* Hct 22.8 L* 21.9 L* MCV 90.5 MCH 27.8 MCHC 30.8 L RDW 15.4 Plt Count 185 MPV 7.5 Neut % (Auto) 76.2 Lymph % (Auto) 14.2 Colbert % (Auto) 8.5 Eos % (Auto) 0.9 Baso % (Auto) 0.2 Neut # (Auto) 3.2 Lymph # (Auto) 0.6 L [place]bert # (Auto) 0.4 Eos # (Auto) 0.0 Baso # (Auto) 0.0 Sodium 141 Potassium 4.4 Chloride 105 Carbon Dioxide 29 Anion Gap 11.4 BUN 47 H Creatinine 1.39 H Estimated Creat Clear 29 Estimated GFR 48 L Est GFR ( Amer) 58 L Glucose 111 H Calcium 8.8 Total Bilirubin AST ALT Alkaline Phosphatase Total Protein Albumin Globulin Albumin/Globulin Ratio Lipase Stool Occult Blood Blood Type Blood Type Confirm Antibody Screen Crossmatch ([facility]) 04/24/19 04/24/19 04/24/19 17:55 17:50 16:20 WBC RBC Hgb Hct MCV MCH MCHC RDW Plt Count MPV Neut % (Auto) Lymph % (Auto) [place]bert % (Auto) Eos % (Auto) Baso % (Auto) Neut # (Auto) Lymph # (Auto) [place]bert # (Auto) Eos # (Auto) Baso # (Auto) Sodium Potassium Chloride Carbon Dioxide Anion Gap BUN Creatinine Estimated Creat Clear Estimated GFR Est GFR ( Amer) Glucose Calcium Total Bilirubin AST ALT Alkaline Phosphatase Total Protein Albumin Globulin Albumin/Globulin Ratio Lipase 76 Stool Occult Blood Blood Type O Positive Blood Type Confirm O Positive Antibody Screen Negative Crossmatch ([facility]) See Detail 04/24/19 04/24/19 04/24/19 16:20 16:20 15:55 WBC 4.6 L RBC 2.33 L Hgb 6.7 L* Hct 21.7 L* MCV 93.4 MCH 28.7 MCHC 30.7 L RDW 14.3 Plt Count 177 MPV 7.1 L Neut % (Auto) 79.3 Lymph % (Auto) 11.9 Colbert % (Auto) 7.7 Eos % (Auto) 0.7 Baso % (Auto) 0.3 Neut # (Auto) 3.6 Lymph # (Auto) 0.5 L Colbert # (Auto) 0.4 Eos # (Auto) 0.0 Baso # (Auto) 0.0 Sodium 141 Potassium 4.5 Chloride 104 Carbon Dioxide 29 Anion Gap 12.5 BUN 50 H Creatinine 1.45 H Estimated Creat Clear 31 Estimated GFR 46 L Est GFR ( Amer) 56 L Glucose 125 H Calcium 8.9 Total Bilirubin 0.4 AST 28 ALT 19 Alkaline Phosphatase 95 Total Protein 5.9 L Albumin 2.7 L Globulin 3.2 Albumin/Globulin Ratio 0.8 L Lipase Stool Occult Blood Positive A Blood Type Blood Type Confirm Antibody Screen Crossmatch ([facility]) DS: Diagnosis - Discharge Diagnosis (1) Anemia Status: Acute (2) Renal insufficiency Status: Chronic (3) Constipation Status: Resolved Discharge Plan - Patient Discharge Instructions ACTIVITY: Continue current activity DIET: continue same diet - Follow up Plan Follow up with: Garret Goyal MD [Primary Care Provider] - 04/27/19 Disposition: Home, Self-Jail Medications: Home Medications Medication Instructions Recorded Confirmed Type Albuterol Sulfate [Proair Hfa 2 puffs IH Q4HP PRN 02/07/19 04/24/19 History 90mcg/puff Inh] Aspirin [Aspirin 81mg chewable 81 mg PO DIRECTED 02/07/19 04/24/19 History tab] Atorvastatin Calcium [Atorvastatin 80 mg PO DAILY 02/07/19 04/24/19 History 80mg Tab] Carvedilol [Carvedilol 3.125mg Tab] 3.125 mg PO BID 02/07/19 04/24/19 History Clopidogrel Bisulfate [Plavix 75mg 75 mg PO DAILY 02/07/19 04/24/19 History Tab] Fluticasone/Salmeterol [Advair 1 puff IH BID 02/07/19 04/24/19 History 250/50mcg Diskus] Lisinopril [Lisinopril 20mg Tab] 20 mg PO BID 02/07/19 04/24/19 History Metoclopramide HCl [Reglan 5mg 5 mg PO ACHS 02/07/19 04/24/19 History Tablet] Polyethylene Glycol 3350 [Miralax 17 gm PO DAILY 02/07/19 04/24/19 History 17gm Packet] Tamsulosin HCl 0.4 mg PO DAILY 02/07/19 04/24/19 History clonazePAM [Clonazepam] 0.5 mg PO BIDP PRN 02/07/19 04/24/19 History Ipratropium/Albuterol Sulfate 3 ml IH DIRECTED PRN 02/08/19 04/24/19 History [Duoneb 3mL neb] Simethicone [Gas-X] 125 mg PO DIRECTED PRN 02/08/19 04/24/19 History predniSONE [Prednisone 5mg 5 mg PO DAILY 02/08/19 04/24/19 History Tab] Prescriptions/Medication Reconciliation: Continued Albuterol Sulfate [Proair Hfa 90mcg/puff Inh] 2 puffs IH Q4HP PRN PRN Reason: Shortness Of Breath Or Wheezing Tamsulosin HCl 0.4 mg PO DAILY Polyethylene Glycol 3350 [Miralax 17gm Packet] 17 gm PO DAILY Metoclopramide HCl [Reglan 5mg Tablet] 5 mg PO ACHS Lisinopril [Lisinopril 20mg Tab] 20 mg PO BID clonazePAM [Clonazepam] 0.5 mg PO BIDP PRN PRN Reason: Nausea Atorvastatin Calcium [Atorvastatin 80mg Tab] 80 mg PO DAILY Ipratropium/Albuterol Sulfate [Duoneb 3mL neb] 3 ml IH DIRECTED PRN PRN Reason: Shortness Of Breath Or Wheezing Simethicone [Gas-X] 125 mg PO DIRECTED PRN PRN Reason: Gas Pain And Discomfort predniSONE [Prednisone 5mg Tab] 5 mg PO DAILY Fluticasone/Salmeterol [Advair 250/50mcg Diskus] 1 puff IH BID Carvedilol [Carvedilol 3.125mg Tab] 3.125 mg PO BID Discontinued Aspirin [Aspirin 81mg chewable tab] 81 mg PO DIRECTED Clopidogrel Bisulfate [Plavix 75mg Tab] 75 mg PO DAILY
== END 2019-04-25 13:50 | disposition home or self-care (01) ==
LOC: 2ND 14:57 → ER 14:57 → 2ND 20:08
PROVIDERS: ADMIT Internal Medicine Adolescent Medicine; ATTEND Internal Medicine Adolescent Medicine
DX: R13.10 Dysphagia, unspecified; Z79.02 Long term (current) use of antithrombotics/antiplatelets; J44.9 Chronic obstructive pulmonary disease, unspecified; R11.0 Nausea; Z79.82 Long term (current) use of aspirin; R10.9 Unspecified abdominal pain; Z79.899 Other long term (current) drug therapy; K59.00 Constipation, unspecified; Z72.0 Tobacco use; I10 Essential (primary) hypertension
CPT/HCPCS: 36415; 74177; 80048; 80053; 82272; 83690; 85014; 85018; 85025; 86850; 96374; 96375; 99284; G0328; G0378; J2405; P9016; Q9967